=== PATIENT | female | born 1995 | race Two or more races ===

== ENCOUNTER 2017-06-23 14:55 | Emergency (ER) | payer OTHER ==
[~2017-06-23] VITALS: Ht 167.6 cm; Wt 86.2 kg
[2017-06-23 15:12] VITALS: BP 124/58
[2017-06-23] MEDS ORDERED: NAPR500T PO (15:21)
[2017-06-23] MEDS ORDERED: SULF1TAB24 PO (15:21)
--- NOTE | 2017-06-23 15:22 | PHYS DOC ---
Past Medical History Past Medical History: Asthma, Other Additional Past Medical Histor: seasonal allergies Past Surgical History: No Surgical History Alcohol Use: Occasionally Drug Use: Marijuana Social History Narrative: occassionally Adult General Chief Complaint Chief Complaint: ABSCESS HPI HPI Patient is a 21 year old male presents to the emergency department with complaints of recurrent abscesses in the axillary and groin. Patient states that she gets these on occasion. She notes that she changed deodorant and skin lotion approximately 2 weeks ago when the abscesses started. She states she's had no fever, no headache, no myalgias, no arthralgias, no nausea, no vomiting. Review of Systems Review of Systems Constitutional: Denies fever or chills [] Eyes: Denies change in visual acuity, redness, or eye pain [] HENT: Denies nasal congestion or sore throat [] Respiratory: Denies cough or shortness of breath [] Cardiovascular: No additional information not addressed in HPI [] GI: Denies abdominal pain, nausea, vomiting, bloody stools or diarrhea [] : Denies dysuria or hematuria [] Musculoskeletal: Denies back pain or joint pain [] Integument: Abscess Neurologic: Denies headache, focal weakness or sensory changes [] Endocrine: Denies polyuria or polydipsia [] Allergies Allergies Allergies Coded Allergies Type Severity Reaction Last Updated Verified No Known Drug Allergies 06/23/17 No Physical Exam Physical Exam Constitutional: Well developed, well nourished, no acute distress, non-toxic appearance. [] Neck: Normal range of motion, no tenderness, supple, no stridor, no lymphadenopathy. [] Cardiovascular:Heart rate regular rhythm, no murmur [] Lungs & Thorax: Bilateral breath sounds clear to auscultation [] Skin: Warm, dry, no erythema, bilateral axillary region behind groin with scattered small pustules at the hair follicles. There is no erythema, no induration. Nontender to palpate. Current Patient Data Vital Signs Vital Signs Date Time Temp Pulse Resp B/P (MAP) Pulse Ox O2 Delivery O2 Flow Rate FiO2 06/23/17 15:12 98.4 68 16 98 Room Air 98.4 EKG EKG [] Radiology/Procedures Radiology/Procedures [] Course & Med Decision Making Course & Med Decision Making Pertinent Labs and Imaging studies reviewed. (See chart for details) [] Dragon Disclaimer Dragon Disclaimer This electronic medical record was generated, in whole or in part, using a voice recognition dictation system. Departure Departure Impression: Primary Impression: Folliculitis Disposition: 01 HOME, SELF-CARE Condition: STABLE Referrals: NO PCP (PCP) [facility] Patient Instructions: Folliculitis Scripts Naproxen (NAPROSYN) 500 Mg Tablet 500 MG PO BID Y for PAIN, #20 TAB Prov: RON PETE APRN 06/23/17 Sulfamethoxazole/Trimethoprim (BACTRIM DS TABLET) 1 Each Tablet 1 TAB PO BID, #20 TAB Prov: RON PETE APRN 06/23/17 RON PETE APRN Jun 23, 2017 15:22
== END 2017-06-23 15:29 | disposition home or self-care (01) ==
LOC: ER 14:55
DX: L73.9 Follicular disorder, unspecified (principal); J45.909 Unspecified asthma, uncomplicated
CPT/HCPCS: 99283